=== PATIENT | male | born 1990 | race Caucasian/White ===

== ENCOUNTER 2017-11-15 21:03 | Inpatient (IN) | payer BC ==
[2017-11-15] MEDS: PREDNISOLONE ACET 1% 5 ML OPH LEFT EYE (23:00)
[2017-11-15] MEDS: SOD CHLORIDE 0.9% 1,000 ML IV ×2 (23:31→23:40)
[2017-11-16] MEDS ORDERED: NACL 0.9% 3 ML SYG IV
[2017-11-16] MEDS ORDERED: morphine 2 MG INJ IV
[2017-11-16] MEDS ORDERED: ONDANSETRON 4 MG INJ IV
[2017-11-16] MEDS ORDERED: ALBUTEROL/IPRATROPIUM (NEB) 3 ML AMP HHN
[2017-11-16] MEDS: PREDNISOLONE ACET 1% 5 ML OPH LEFT EYE ×12 (01:00→23:15)
[2017-11-16] MEDS: SOD CHLORIDE 0.9% 1,000 ML IV ×4 (03:36→23:16)
[2017-11-16 05:43] LABS: ADD MAN DIFF? NO
[2017-11-16 05:49] LABS: BASOPHIL # 0.1 10^3/ul (0.0-0.1); BASOPHILS % 0.5 % (0.0-2.0); EOSINOPHILS # 0.2 10^3/ul (0.0-0.5); EOSINOPHILS % 2.3 % (0.0-7.0); HEMATOCRIT 39.2 % (42.0-52.0); HEMOGLOBIN 13.3 g/dl (14.0-18.0); LYMPHOCYTES # 2.3 10^3/ul (0.8-2.9); LYMPHOCYTES % 24.5 % (15.0-51.0); MEAN CORPUSCULAR HEMOGLOBIN 30.4 pg (29.0-33.0); MEAN CORPUSCULAR HGB CONC 33.9 g/dl (32.0-37.0); MEAN CORPUSCULAR VOLUME 89.5 fl (82.0-101.0); MEAN PLATELET VOLUME 12.4 fl (7.4-10.4); MONOCYTES % 10.6 % (0.0-11.0); NEUTROPHIL # 5.9 10^3/ul (1.6-7.5); NEUTROPHILS % 61.7 % (39.0-77.0); PLATELET COUNT 185 10^3/UL (140-415); RED BLOOD COUNT 4.38 10^6/ul (4.70-6.10); RED CELL DISTRIBUTION WIDTH 12.2 % (11.5-14.5)
[2017-11-16 05:49] LABS: WHITE BLOOD COUNT 9.5 10^3/ul (4.8-10.8)
[2017-11-16 06:13] LABS: ALANINE AMINOTRANSFERASE 69 IU/L (13-69); ALBUMIN 3.2 g/dl (3.3-4.9); ALKALINE PHOSPHATASE 59 IU/L (42-121); ANION GAP 11 (8-16); ASPARTATE AMINO TRANSFERASE 172 IU/L (15-46); BILIRUBIN,INDIRECT 0.6 mg/dl (0-1.1); BILIRUBIN,TOTAL 0.6 mg/dl (0.2-1.3); BLOOD UREA NITROGEN 11 mg/dl (7-20); CALCIUM 8.1 mg/dl (8.4-10.2); CARBON DIOXIDE 28 mmol/L (21-31); CHLORIDE 107 mmol/L (97-110); CREATININE 0.81 mg/dl (0.61-1.24); GLUCOSE 95 mg/dl (70-220); PHOSPHORUS 3.9 mg/dl (2.5-4.9); POTASSIUM 4.2 mmol/L (3.5-5.1); SODIUM 142 mmol/L (135-144); TOTAL PROTEIN 6.1 g/dl (6.1-8.1)
[2017-11-16 07:08] LABS: CREATINE KINASE 14097 IU/L (23-200)
[2017-11-16] MEDS: ACETAMINOPHEN 325 MG TAB PO (08:55)
[2017-11-16] MEDS: DEXAMETHASONE 4 MG/ML 1 ML INJ IV ×4 (08:56→23:15)
[2017-11-16] MEDS ORDERED: morphine LIQ (10 MG/5 ML) CUP PO (15:00)
[2017-11-17] MEDS: PREDNISOLONE ACET 1% 5 ML OPH LEFT EYE ×7 (01:35→13:03)
[2017-11-17 05:20] LABS: ADD MAN DIFF? NO
[2017-11-17 05:23] LABS: WHITE BLOOD COUNT 18.3 10^3/ul (4.8-10.8)
[2017-11-17 05:23] LABS: BASOPHILS % 0.2 % (0.0-2.0); HEMATOCRIT 40.7 % (42.0-52.0); HEMOGLOBIN 14.3 g/dl (14.0-18.0); LYMPHOCYTES # 0.8 10^3/ul (0.8-2.9); LYMPHOCYTES % 4.3 % (15.0-51.0); MEAN CORPUSCULAR HEMOGLOBIN 30.4 pg (29.0-33.0); MEAN CORPUSCULAR HGB CONC 35.1 g/dl (32.0-37.0); MEAN CORPUSCULAR VOLUME 86.4 fl (82.0-101.0); MEAN PLATELET VOLUME 12.3 fl (7.4-10.4); MONOCYTE # 0.8 10^3/ul (0.3-0.9); MONOCYTES % 4.5 % (0.0-11.0); NEUTROPHIL # 16.5 10^3/ul (1.6-7.5); NEUTROPHILS % 90.5 % (39.0-77.0); PLATELET COUNT 215 10^3/UL (140-415); RED BLOOD COUNT 4.71 10^6/ul (4.70-6.10); RED CELL DISTRIBUTION WIDTH 11.9 % (11.5-14.5)
[2017-11-17] MEDS: DEXAMETHASONE 4 MG/ML 1 ML INJ IV ×2 (05:49→11:49)
[2017-11-17 05:56] LABS: ALANINE AMINOTRANSFERASE 74 IU/L (13-69); ALBUMIN 3.6 g/dl (3.3-4.9); ALKALINE PHOSPHATASE 70 IU/L (42-121); ANION GAP 11 (8-16); ASPARTATE AMINO TRANSFERASE 94 IU/L (15-46); BILIRUBIN,INDIRECT 0.2 mg/dl (0-1.1); BILIRUBIN,TOTAL 0.2 mg/dl (0.2-1.3); BLOOD UREA NITROGEN 12 mg/dl (7-20); CALCIUM 9.1 mg/dl (8.4-10.2); CARBON DIOXIDE 27 mmol/L (21-31); CHLORIDE 108 mmol/L (97-110); CREATININE 0.68 mg/dl (0.61-1.24); GLUCOSE 172 mg/dl (70-220); POTASSIUM 4.1 mmol/L (3.5-5.1); SODIUM 142 mmol/L (135-144); TOTAL PROTEIN 6.6 g/dl (6.1-8.1)
[2017-11-17 06:18] LABS: THYROID STIMULATING HORMONE 0.318 MIU/L (0.465-4.680)
[2017-11-17 06:27] LABS: HIV 1&2 ANTIBODY NEGATIVE (NEGATIVE)
[2017-11-17 06:58] LABS: CREATINE KINASE 6377 IU/L (23-200)
[2017-11-17] MEDS: SOD CHLORIDE 0.9% 1,000 ML IV (09:30)
== END 2017-11-17 14:49 | disposition home or self-care (01) | DRG 558 ==
LOC: MS1 21:03
DX: M62.82 Rhabdomyolysis (principal); M25.551 Pain in right hip
CPT/HCPCS: 80053; 82550; 83735; 84100; 84443; 85025; 86703